=== PATIENT | female | born 1975 | race Caucasian/White ===

== ENCOUNTER 2020-06-25 17:12 | Emergency (ER) | payer OTHER ==
[2020-06-25 17:38] VITALS: TEMP 98.6; BMI 32.9
[2020-06-25] MEDS ORDERED: NAPROXEN 375 MG TABLET PO ONE (20:00)
[2020-06-25] MEDS ORDERED: NAPROXEN 500 MG TABLET PO ONE (20:07)
[2020-06-25] MEDS ORDERED: NAPROXEN 500 MG TABLET ONE (20:07)
[2020-06-25 20:32] VITALS: BP 132/80; PULSE 82
== END 2020-06-25 20:32 | disposition home or self-care (01) ==
LOC: JER 17:12
DX: M79.605 Pain in left leg (principal)
CPT/HCPCS: 93970-TC; 99284-25

== ENCOUNTER 2020-12-06 20:36 | Emergency (ER) | payer OTHER ==
[2020-12-06 21:26] VITALS: TEMP 98.1; BMI 34.0
[2020-12-06] MEDS ORDERED: ACETAMINOPHEN 325 MG TABLET (FP) PO ONE (21:46)
[2020-12-06] MEDS ORDERED: LIDOCAINE 5% TOPICAL PATCH TP ONE (21:47)
[2020-12-06] MEDS ORDERED: LIDOCAINE PATCH REMOVAL MC ONE (22:00)
[2020-12-06] MEDS ORDERED: ACETAMINOPHEN 325 MG TABLET (FP) ONE (22:11)
[2020-12-06] MEDS ORDERED: LIDOCAINE 5% TOPICAL PATCH ONE (22:12)
[2020-12-06] MEDS ORDERED: IBUPROFEN 600 MG TABLET (FP) PO ONE ×2 (22:18→22:41)
[2020-12-06 22:35] LABS: BASO % 0.8 % (0-2.0); EOS % 1.8 % (0-4.5); HEMATOCRIT 40.8 % (32.4-45.2); HEMOGLOBIN 14.2 GM/dL (10.7-15.3); LYMPH % 29.4 % (8-40); MCH 31.5 pg (25.7-33.7); MCHC 34.7 g/dl (32.0-36.0); MEAN CELL VOLUME 90.8 fl (80-96); MEAN PLT VOLUME 6.4 fl (7.5-11.1); MONO % 6.5 % (3.8-10.2); NEUT % 61.5 % (42.8-82.8); PLATELET COUNT 281 10^3/uL (134-434); RDW 13.1 % (11.6-15.6); WHITE BLOOD COUNT 7.7 K/mm3 (4.0-10.0)
[2020-12-06 22:54] LABS: CHLORIDE 109 mmol/L (98-107); SODIUM 140 mmol/L (136-145)
[2020-12-06 22:58] LABS: ALBUMIN 3.6 g/dl (3.4-5.0); ANION GAP 8 MMOL/L (8-16); BLOOD UREA NITROGEN 13.5 mg/dL (7-18); CALCIUM 8.5 mg/dL (8.5-10.1); CO2 24 mmol/L (21-32); GLUCOSE,RANDOM 92 mg/dL (74-106)
[2020-12-06 23:01] LABS: SGOT/AST 10 U/L (15-37); SGPT/ALT 21 U/L (13-61)
[2020-12-06 23:03] LABS: BILIRUBIN,TOTAL 0.4 mg/dL (0.2-1); TOT PROT 7.2 g/dl (6.4-8.2)
[2020-12-06 23:04] LABS: ALK PHOS 46 U/L (45-117)
[2020-12-06 23:56] VITALS: BP 117/81; PULSE 79
== END 2020-12-06 23:57 | disposition home or self-care (01) ==
LOC: JER 20:36
DX: M79.10 Myalgia, unspecified site (principal)
CPT/HCPCS: 36415; 71046-TC-FY; 80053; 82550; 84484; 85025; 93005; 93010; 99285-25

== ENCOUNTER 2021-10-25 00:14 | Emergency (ER) | payer OTHER ==
[2021-10-25 00:36] VITALS: BP 134/85; PULSE 93; RESP 20; TEMP 98.1; BMI 36.0
== END 2021-10-25 01:23 | disposition home or self-care (01) ==
LOC: JER 00:14
DX: H11.32 Conjunctival hemorrhage, left eye (principal)
CPT/HCPCS: 99283-25

== ENCOUNTER 2021-11-25 19:01 | Emergency (ER) | payer OTHER ==
[2021-11-25 19:07] VITALS: BP 130/74; PULSE 86; RESP 18; BMI 36.3
[2021-11-25] MEDS ORDERED: ACETAMINOPHEN 1000 MG/100 ML BAG IVPB ONE (20:09)
[2021-11-25] MEDS ORDERED: MAG HYDROX/AL HYDROX/SIMETH -MYLANTA- ORAL SUSPENSION PO ONE (20:09)
[2021-11-25] MEDS ORDERED: FAMOTIDINE 20 MG/50 ML IVPB 20 MG/50 ML MG IVPB ONE ×2 (20:09→20:54)
[2021-11-25 20:15] VITALS: TEMP 97.8
[2021-11-25 20:52] LABS: BASO % 0.8 % (0-2.0); EOS % 1.3 % (0-4.5); HEMATOCRIT 41.3 % (32.4-45.2); HEMOGLOBIN 14.3 GM/dL (10.7-15.3); LYMPH % 26.3 % (8-40); MCH 31.8 pg (25.7-33.7); MCHC 34.7 g/dl (32.0-36.0); MEAN CELL VOLUME 91.7 fl (80-96); MEAN PLT VOLUME 6.3 fl (7.5-11.1); MONO % 6.6 % (3.8-10.2); PLATELET COUNT 291 10^3/uL (134-434); RBC 4.51 M/mm3 (3.60-5.2); RDW 13.5 % (11.6-15.6); WHITE BLOOD COUNT 7.2 K/mm3 (4.0-10.0)
[2021-11-25] MEDS ORDERED: MAG HYDROX/AL HYDROX/SIMETH 30 ML UNIT-DOSE CUP ONE (20:54)
[2021-11-25] MEDS ORDERED: ACETAMINOPHEN INJECTION 100 ML IVPB ONE (20:54)
[2021-11-25 21:12] LABS: CHLORIDE 110 mmol/L (98-107); SODIUM 140 mmol/L (136-145)
[2021-11-25 21:14] LABS: ALBUMIN 3.6 g/dl (3.4-5.0); ANION GAP 6 MMOL/L (8-16); BLOOD UREA NITROGEN 9.5 mg/dL (7-18); CALCIUM 8.2 mg/dL (8.5-10.1); CO2 24 mmol/L (21-32); GLUCOSE,RANDOM 92 mg/dL (74-106); LIPASE 141 U/L (73-393)
[2021-11-25 21:17] LABS: CREATININE 0.7 mg/dL (0.55-1.3); SGOT/AST 19 U/L (15-37); SGPT/ALT 26 U/L (13-61)
[2021-11-25 21:18] LABS: BILIRUBIN,TOTAL 0.4 mg/dL (0.2-1)
[2021-11-25 21:19] LABS: TOT PROT 7.3 g/dl (6.4-8.2)
[2021-11-25 21:20] LABS: ALK PHOS 53 U/L (45-117)
== END 2021-11-25 22:48 | disposition home or self-care (01) ==
LOC: JER 19:01
PROC: 3E0333Z Introduction of Anti-inflammatory into Peripheral Vein, Percutaneous Approach (ICD-10-PCS; principal; 2021-11-25)
PROC: 3E033GC Introduction of Other Therapeutic Substance into Peripheral Vein, Percutaneous Approach (ICD-10-PCS; 2021-11-25)
DX: M79.605 Pain in left leg (principal); R07.9 Chest pain, unspecified
CPT/HCPCS: 36415; 71045-TC-FY; 80053; 83690; 84484; 85025; 93005; 93010; 99285-25; C9803-CS; U0003; U0005

== ENCOUNTER 2022-03-31 14:36 | Emergency (ER) | payer OTHER ==
[2022-03-31 14:44] VITALS: BP 129/78; PULSE 70; RESP 20; TEMP 98.4; BMI 33.5
[2022-03-31] MEDS ORDERED: IBUPROFEN 400 MG TABLET (FP) PO ONE ×2 (15:20→15:39)
== END 2022-03-31 15:44 | disposition home or self-care (01) ==
LOC: JERFT 14:36
DX: G57.12 Meralgia paresthetica, left lower limb (principal)
CPT/HCPCS: 99283-25

== ENCOUNTER 2022-10-21 18:45 | Emergency (ER) | payer OTHER ==
[2022-10-21 18:54] VITALS: BP 169/92; PULSE 83; RESP 20; TEMP 98.3; BMI 39.0
== END 2022-10-21 20:17 | disposition home or self-care (01) ==
LOC: JERFT 18:45
DX: K13.70 Unspecified lesions of oral mucosa (principal); J35.8 Other chronic diseases of tonsils and adenoids; Z20.822 Contact with and (suspected) exposure to COVID-19
CPT/HCPCS: 87651; 99283-25

== ENCOUNTER 2023-02-04 07:11 | Emergency (ER) | payer OTHER ==
[2023-02-04 07:34] VITALS: RESP 18; BMI 39.8
[2023-02-04] MEDS ORDERED: SODIUM CHLORIDE 1,000 ML IV STA (08:19)
[2023-02-04] MEDS ORDERED: ACETAMINOPHEN 1000 MG/100 ML BAG IVPB ONE (08:19)
[2023-02-04] MEDS ORDERED: ACETAMINOPHEN INJECTION 100 ML IVPB ONE (08:34)
[2023-02-04 09:34] LABS: HEMATOCRIT 43.8 % (32.4-45.2); HEMOGLOBIN 15.2 GM/dL (10.7-15.3); MCH 31.2 pg (25.7-33.7); MCHC 34.8 g/dl (32.0-36.0); MEAN CELL VOLUME 89.8 fl (80-96); RBC 4.88 M/mm3 (3.60-5.2); RDW 13.7 % (11.6-15.6)
[2023-02-04 09:43] LABS: POTASSIUM 4.5 mmol/L (3.5-5.1)
[2023-02-04 09:50] LABS: CREATININE 0.7 mg/dL (0.55-1.3)
[2023-02-04 09:52] LABS: ALBUMIN 3.8 g/dl (3.4-5.0); BILIRUBIN,TOTAL 0.4 mg/dL (0.2-1); BLOOD UREA NITROGEN 10.8 mg/dL (7-18); CALCIUM 8.9 mg/dL (8.5-10.1); TOT PROT 7.6 g/dl (6.4-8.2)
[2023-02-04 10:14] LABS: WHITE BLOOD COUNT 8.3 K/mm3 (4.0-10.0)
[2023-02-04 10:15] LABS: MEAN PLT VOLUME 8.6 fl (7.5-11.1); PLATELET COUNT 181 10^3/uL (134-434)
[2023-02-04 11:30] LABS: ANISOCYTOSIS 1+; MACROCYTOSIS 0
[2023-02-04] MEDS ORDERED: AMOX TR/POT CLAV 875MG/125MG TABLETS (FP) PO ONE (12:17)
[2023-02-04] MEDS ORDERED: AMOX TR/POT CLAV 875MG/125MG TABLETS (FP) ONE (13:09)
[2023-02-04 13:29] VITALS: BP 130/68; PULSE 70; TEMP 97.6
== END 2023-02-04 13:29 | disposition home or self-care (01) ==
LOC: JER 07:11
PROC: 3E033NZ Introduction of Analgesics, Hypnotics, Sedatives into Peripheral Vein, Percutaneous Approach (ICD-10-PCS; principal; 2023-02-04)
PROC: 3E0337Z Introduction of Electrolytic and Water Balance Substance into Peripheral Vein, Percutaneous Approach (ICD-10-PCS; 2023-02-04)
DX: R10.9 Unspecified abdominal pain (principal); R19.7 Diarrhea, unspecified; K57.32 Diverticulitis of large intestine without perforation or abscess without bleeding
CPT/HCPCS: 36415; 74177-TC; 80053; 85025; 99285-25; Q9967

== ENCOUNTER 2023-02-10 06:52 | Emergency (ER) | payer OTHER ==
[2023-02-10 07:06] VITALS: BP 133/85; PULSE 85; RESP 18; TEMP 98.7; BMI 35.0
[2023-02-10] MEDS ORDERED: KETOROLAC TROMETHAMINE 30 MG/1 ML VIAL IM ONE (07:42)
[2023-02-10] MEDS ORDERED: LIDOCAINE 4% PATCH TP ONE ×2 (07:42→07:46)
[2023-02-10] MEDS ORDERED: ACETAMINOPHEN 325 MG TABLET (FP) PO ONE (07:42)
[2023-02-10] MEDS ORDERED: ACETAMINOPHEN 325 MG TABLET (FP) ONE (07:46)
[2023-02-10] MEDS ORDERED: KETOROLAC TROMETHAMINE 30 MG/1 ML VIAL ONE (07:46)
[2023-02-10] MEDS ORDERED: LIDOCAINE PATCH REMOVAL MC SCH (22:00)
== END 2023-02-10 09:15 | disposition home or self-care (01) ==
LOC: JER 06:52
PROC: 3E0233Z Introduction of Anti-inflammatory into Muscle, Percutaneous Approach (ICD-10-PCS; principal; 2023-02-10)
DX: S33.5XXA Sprain of ligaments of lumbar spine, initial encounter (principal); X50.9XXA Other and unspecified overexertion or strenuous movements or postures, initial encounter; Y99.0 Civilian activity done for income or pay
CPT/HCPCS: 99284-25

== ENCOUNTER 2023-02-15 03:54 | Emergency (ER) | payer OTHER ==
[2023-02-15 04:13] VITALS: BMI 34.7
[2023-02-15] MEDS ORDERED: MAG HYDROX/AL HYDROX/SIMETH -MYLANTA- ORAL SUSPENSION PO ONE (05:06)
[2023-02-15] MEDS ORDERED: FAMOTIDINE 20 MG/50 ML IVPB 20 MG/50 ML MG IVPB ONE ×2 (05:06→05:13)
[2023-02-15] MEDS ORDERED: MAG HYDROX/AL HYDROX/SIMETH 30 ML UNIT-DOSE CUP ONE (05:13)
[2023-02-15 05:23] VITALS: BP 125/77; PULSE 77; RESP 18; TEMP 98.4
[2023-02-15] MEDS ORDERED: ACETAMINOPHEN 1000 MG/100 ML BAG IVPB ONE (05:25)
[2023-02-15] MEDS ORDERED: ACETAMINOPHEN INJECTION 100 ML IVPB ONE (05:27)
[2023-02-15 05:30] LABS: BASO % 0.5 % (0-2.0); EOS % 2.1 % (0-4.5); HEMATOCRIT 44.8 % (32.4-45.2); HEMOGLOBIN 15.4 GM/dL (10.7-15.3); LYMPH % 11.8 % (8-40); MCH 31.4 pg (25.7-33.7); MCHC 34.3 g/dl (32.0-36.0); MEAN CELL VOLUME 91.4 fl (80-96); MEAN PLT VOLUME 6.8 fl (7.5-11.1); MONO % 6.8 % (3.8-10.2); NEUT % 78.8 % (42.8-82.8); PLATELET COUNT 237 10^3/uL (134-434); RDW 13.8 % (11.6-15.6); WHITE BLOOD COUNT 10.2 K/mm3 (4.0-10.0)
[2023-02-15 06:06] LABS: POTASSIUM 3.8 mmol/L (3.5-5.1)
[2023-02-15 06:07] LABS: CALCIUM 9.3 mg/dL (8.5-10.1)
[2023-02-15 06:08] LABS: BLOOD UREA NITROGEN 7.2 mg/dL (7-18); MAGNESIUM 2.1 mg/dL (1.8-2.4)
[2023-02-15 06:10] LABS: CREATININE 0.8 mg/dL (0.55-1.3)
[2023-02-15 06:12] LABS: BILIRUBIN,TOTAL 0.7 mg/dL (0.2-1); TOT PROT 7.6 g/dl (6.4-8.2)
== END 2023-02-15 06:44 | disposition home or self-care (01) ==
LOC: JER 03:54
PROC: 3E033GC Introduction of Other Therapeutic Substance into Peripheral Vein, Percutaneous Approach (ICD-10-PCS; principal; 2023-02-15)
PROC: 3E033NZ Introduction of Analgesics, Hypnotics, Sedatives into Peripheral Vein, Percutaneous Approach (ICD-10-PCS; 2023-02-15)
DX: R10.13 Epigastric pain (principal); K29.00 Acute gastritis without bleeding; R19.7 Diarrhea, unspecified
CPT/HCPCS: 36415; 80053; 83690; 83735; 85025; 93005; 93010; 99284-25

== ENCOUNTER 2023-02-26 02:34 | Emergency (ER) | payer OTHER ==
[2023-02-26 02:52] VITALS: BMI 33.6
[2023-02-26] MEDS ORDERED: ACETAMINOPHEN 1000 MG/100 ML BAG IVPB ONE (03:03)
[2023-02-26] MEDS ORDERED: FAMOTIDINE 20 MG/50 ML IVPB 20 MG/50 ML MG IVPB ONE (03:14)
[2023-02-26] MEDS ORDERED: MAG HYDROX/AL HYDROX/SIMETH 30 ML UNIT-DOSE CUP PO ONE (03:14)
[2023-02-26] MEDS ORDERED: ACETAMINOPHEN INJECTION 100 ML IVPB ONE (03:18)
[2023-02-26] MEDS ORDERED: MAG HYDROX/AL HYDROX/SIMETH 30 ML UNIT-DOSE CUP ONE (03:18)
[2023-02-26] MEDS ORDERED: FAMOTIDINE 10 MG/ML VIAL IVPB ONE (03:28)
[2023-02-26 04:04] LABS: BASO % 0.8 % (0-2.0); EOS % 1.9 % (0-4.5); HEMATOCRIT 41.7 % (32.4-45.2); HEMOGLOBIN 14.6 GM/dL (10.7-15.3); LYMPH % 33.7 % (8-40); MCH 31.3 pg (25.7-33.7); MCHC 34.9 g/dl (32.0-36.0); MEAN CELL VOLUME 89.6 fl (80-96); MEAN PLT VOLUME 6.4 fl (7.5-11.1); MONO % 10.9 % (3.8-10.2); NEUT % 52.7 % (42.8-82.8); PLATELET COUNT 243 10^3/uL (134-434); RBC 4.65 M/mm3 (3.60-5.2); RDW 13.7 % (11.6-15.6); WHITE BLOOD COUNT 3.7 K/mm3 (4.0-10.0)
[2023-02-26 04:24] LABS: POTASSIUM 3.8 mmol/L (3.5-5.1)
[2023-02-26 04:27] LABS: CALCIUM 9.3 mg/dL (8.5-10.1)
[2023-02-26 04:28] LABS: ALBUMIN 3.4 g/dl (3.4-5.0); BLOOD UREA NITROGEN 12.3 mg/dL (7-18)
[2023-02-26 04:31] LABS: CREATININE 0.8 mg/dL (0.55-1.3)
[2023-02-26 04:32] LABS: BILIRUBIN,TOTAL 0.6 mg/dL (0.2-1)
[2023-02-26 07:01] VITALS: BP 135/95; PULSE 82; RESP 18; TEMP 97.2
== END 2023-02-26 07:05 | disposition home or self-care (01) ==
LOC: JER 02:34
PROC: 3E033GC Introduction of Other Therapeutic Substance into Peripheral Vein, Percutaneous Approach (ICD-10-PCS; principal; 2023-02-26)
PROC: 3E033GC Introduction of Other Therapeutic Substance into Peripheral Vein, Percutaneous Approach (ICD-10-PCS; 2023-02-26)
DX: R07.89 Other chest pain (principal); R11.10 Vomiting, unspecified; U07.1 COVID-19
CPT/HCPCS: 0241U-QW; 36415; 71046-TC-FY; 80053; 84484; 85025; 93005; 93010; 99285-25

== ENCOUNTER 2023-03-18 23:08 | Emergency (ER) | payer OTHER ==
[2023-03-18 23:16] VITALS: BP 125/77; PULSE 70; RESP 20; TEMP 98.9; BMI 33.4
[2023-03-18] MEDS ORDERED: KETOROLAC TROMETHAMINE 30 MG/1 ML VIAL IM STA (23:36)
[2023-03-18] MEDS ORDERED: KETOROLAC TROMETHAMINE 30 MG/1 ML VIAL ONE (23:48)
== END 2023-03-19 01:56 | disposition home or self-care (01) ==
LOC: JER 23:08
PROC: 3E0233Z Introduction of Anti-inflammatory into Muscle, Percutaneous Approach (ICD-10-PCS; principal; 2023-03-18)
DX: M79.652 Pain in left thigh (principal); R20.2 Paresthesia of skin; S76.912A Strain of unspecified muscles, fascia and tendons at thigh level, left thigh, initial encounter; X50.9XXA Other and unspecified overexertion or strenuous movements or postures, initial encounter
CPT/HCPCS: 93971-TC; 99284-25

== ENCOUNTER 2023-04-30 19:44 | Emergency (ER) | payer OTHER ==
[2023-04-30 19:55] VITALS: TEMP 98.5; BMI 34.9
[2023-04-30] MEDS: ACETAMINOPHEN 325 MG TABLET (FP) PO ONE (21:16)
[2023-04-30] MEDS ORDERED: ACETAMINOPHEN 500 MG TABLET (FP) ONE (21:16)
[2023-04-30 21:43] LABS: BASO % 1.2 % (0-2.0); EOS % 2.5 % (0-4.5); HEMOGLOBIN 14.1 GM/dL (10.7-15.3); LYMPH % 34.3 % (8-40); MCH 31.1 pg (25.7-33.7); MCHC 33.6 g/dl (32.0-36.0); MEAN CELL VOLUME 92.6 fl (80-96); MEAN PLT VOLUME 6.1 fl (7.5-11.1); MONO % 8.2 % (3.8-10.2); NEUT % 53.8 % (42.8-82.8); PLATELET COUNT 344 10^3/uL (134-434); RBC 4.54 M/mm3 (3.60-5.2); RDW 13.2 % (11.6-15.6)
[2023-04-30 21:49] LABS: INR 0.92 (0.83-1.09); PROTHROMBIN TIME (PATIENT) 10.7 SEC (9.7-13.0)
[2023-04-30 21:52] LABS: ACTIVATED PTT 28.1 SECONDS (25.2-36.5)
[2023-04-30 21:59] LABS: ALBUMIN 3.6 g/dl (3.4-5.0); BLOOD UREA NITROGEN 12.5 mg/dL (7-18); MAGNESIUM 1.9 mg/dL (1.8-2.4)
[2023-04-30 22:02] LABS: CREATININE 0.9 mg/dL (0.55-1.3)
[2023-04-30 22:03] LABS: BILIRUBIN,TOTAL 0.4 mg/dL (0.2-1); TOT PROT 7.7 g/dl (6.4-8.2)
[2023-04-30 23:52] VITALS: BP 152/85; PULSE 80; RESP 16
== END 2023-05-01 00:06 | disposition home or self-care (01) ==
LOC: JERFT 19:44 → JER 19:44
DX: R07.89 Other chest pain (principal); M79.604 Pain in right leg
CPT/HCPCS: 36415; 71275-TC; 80053; 83735; 85025; 85610; 85730; 86850; 86900; 86901; 93005; 93010; 93971-TC; 99285-25; Q9967

== ENCOUNTER 2023-05-27 23:38 | Emergency (ER) | payer OTHER ==
[2023-05-27 23:54] VITALS: BP 138/88; PULSE 94; RESP 18; TEMP 98.5; BMI 35.7
[2023-05-28] MEDS ORDERED: LIDOCAINE 4% PATCH TP ONE (01:15)
[2023-05-28] MEDS ORDERED: ACETAMINOPHEN INJECTION 100 ML IVPB ONE (01:15)
[2023-05-28] MEDS: LIDOCAINE 4% PATCH TP ONE (01:19)
[2023-05-28] MEDS: ACETAMINOPHEN 1000 MG/100 ML BAG IVPB ONE (01:19)
[2023-05-28 01:21] LABS: BASO % 0.9 % (0-2.0); EOS % 3.2 % (0-4.5); HEMATOCRIT 42.3 % (32.4-45.2); HEMOGLOBIN 14.8 GM/dL (10.7-15.3); LYMPH % 27.5 % (8-40); MCH 31.7 pg (25.7-33.7); MEAN CELL VOLUME 90.4 fl (80-96); MEAN PLT VOLUME 6.4 fl (7.5-11.1); MONO % 8.9 % (3.8-10.2); NEUT % 59.5 % (42.8-82.8); PLATELET COUNT 261 10^3/uL (134-434); RBC 4.68 M/mm3 (3.60-5.2); RDW 13.1 % (11.6-15.6); WHITE BLOOD COUNT 7.5 K/mm3 (4.0-10.0)
[2023-05-28 01:29] LABS: INR 0.98 (0.83-1.09); PROTHROMBIN TIME (PATIENT) 11.4 SEC (9.7-13.0)
[2023-05-28 01:31] LABS: ACTIVATED PTT 31.6 SECONDS (25.2-36.5)
[2023-05-28 01:55] LABS: POTASSIUM 3.8 mmol/L (3.5-5.1)
[2023-05-28 01:58] LABS: CALCIUM 9.5 mg/dL (8.5-10.1)
[2023-05-28 01:59] LABS: BLOOD UREA NITROGEN 15.8 mg/dL (7-18); MAGNESIUM 2.2 mg/dL (1.8-2.4)
[2023-05-28 02:03] LABS: BILIRUBIN,TOTAL 0.6 mg/dL (0.2-1); CREATININE 0.8 mg/dL (0.55-1.3); TOT PROT 7.6 g/dl (6.4-8.2)
[2023-05-28] MEDS ORDERED: LIDOCAINE PATCH REMOVAL MC ONE (13:00)
== END 2023-05-28 03:20 | disposition home or self-care (01) ==
LOC: JER 23:38
PROC: 3E033NZ Introduction of Analgesics, Hypnotics, Sedatives into Peripheral Vein, Percutaneous Approach (ICD-10-PCS; principal; 2023-05-28)
DX: M79.602 Pain in left arm (principal); R68.84 Jaw pain
CPT/HCPCS: 36415; 71046-TC-FY; 73060-TC-LT-FY; 73070-TC-LT-FY; 80053; 83735; 84484; 85025; 85610; 85730; 93005; 93010; 99285-25; J0131

== ENCOUNTER 2023-12-07 02:08 | Emergency (ER) | payer OTHER ==
[2023-12-07 02:14] VITALS: BP 147/87; PULSE 93; RESP 18; TEMP 98.8; BMI 36.3
[2023-12-07] MEDS ORDERED: morphine SULFATE 4 MG/ML VIAL ONE (03:02)
[2023-12-07] MEDS ORDERED: ONDANSETRON 4 MG/2 ML VIAL ONE (03:03)
[2023-12-07] MEDS: ONDANSETRON 4 MG/2 ML VIAL IVPUSH ONE (03:26)
[2023-12-07] MEDS: morphine CARPU-JECT 4 MG/1 ML DISP.SYRIN IVPUSH ONE (03:26)
[2023-12-07] MEDS: SODIUM CHLORIDE 1,000 ML IV STA (03:26)
[2023-12-07 03:36] LABS: BASO % 0.4 % (0-2.0); EOS % 2.2 % (0-4.5); HEMATOCRIT 43.1 % (32.4-45.2); HEMOGLOBIN 14.7 GM/dL (10.7-15.3); LYMPH % 10.4 % (8-40); MCH 30.6 pg (25.7-33.7); MCHC 34.1 g/dl (32.0-36.0); MEAN CELL VOLUME 89.7 fl (80-96); MEAN PLT VOLUME 6.7 fl (7.5-11.1); MONO % 7.2 % (3.8-10.2); NEUT % 79.8 % (42.8-82.8); PLATELET COUNT 253 10^3/uL (134-434); RDW 13.9 % (11.6-15.6); WHITE BLOOD COUNT 6.6 K/mm3 (4.0-10.0)
[2023-12-07 03:37] LABS: EPI CELLS 12 /uL (0-25.1); HYALINE CASTS 0 /uL (0-3.1); URINE APPEARANCE CLEAR; URINE BACTERIA 1478 /uL (0-1359); URINE BILIRUBIN NEGATIVE (NEGATIVE); URINE COLOR YELLOW; URINE GLUCOSE (UA) NEGATIVE (NEGATIVE); URINE KETONE NEGATIVE (NEGATIVE); URINE LEUK ESTERASE NEGATIVE (NEGATIVE); URINE NITRITE NEGATIVE (NEGATIVE); URINE PROTEIN NEGATIVE (NEGATIVE); URINE RBC 86 /uL (0-23.9); URINE WBC 7 /uL (0-25.8)
[2023-12-07 03:51] LABS: INR 0.95 (0.83-1.09); PROTHROMBIN TIME (PATIENT) 10.7 SEC (9.7-13.0)
[2023-12-07 03:56] LABS: POTASSIUM 3.8 mmol/L (3.5-5.1)
[2023-12-07 03:58] LABS: CALCIUM 8.8 mg/dL (8.5-10.1)
[2023-12-07 03:59] LABS: ALBUMIN 3.5 g/dl (3.4-5.0)
[2023-12-07 04:02] LABS: CREATININE 0.8 mg/dL (0.55-1.3)
[2023-12-07 04:03] LABS: BILIRUBIN,TOTAL 0.5 mg/dL (0.2-1)
[2023-12-07 04:50] LABS: HIV INTERPRETATION NEGATIVE (NEGATIVE)
== END 2023-12-07 05:58 | disposition home or self-care (01) ==
LOC: JER 02:08
PROC: 3E033NZ Introduction of Analgesics, Hypnotics, Sedatives into Peripheral Vein, Percutaneous Approach (ICD-10-PCS; principal; 2023-12-07)
PROC: 3E033GC Introduction of Other Therapeutic Substance into Peripheral Vein, Percutaneous Approach (ICD-10-PCS; 2023-12-07)
PROC: 3E0337Z Introduction of Electrolytic and Water Balance Substance into Peripheral Vein, Percutaneous Approach (ICD-10-PCS; 2023-12-07)
DX: R10.12 Left upper quadrant pain (principal); R11.2 Nausea with vomiting, unspecified
CPT/HCPCS: 36415; 74177-TC; 80053; 81003; 83690; 84703; 85025; 85610; 85730; 86803; 86850; 86900; 86901; 87389; 99285-25; Q9967

== ENCOUNTER 2023-12-18 06:42 | Emergency (ER) | payer OTHER ==
[2023-12-18 06:48] VITALS: BP 134/83; PULSE 66; RESP 20; TEMP 98.1; BMI 37.8
[2023-12-18 08:26] LABS: BASO % 0.7 % (0-2.0); EOS % 2.9 % (0-4.5); HEMATOCRIT 42.2 % (32.4-45.2); HEMOGLOBIN 14.4 GM/dL (10.7-15.3); LYMPH % 20.3 % (8-40); MCH 30.5 pg (25.7-33.7); MCHC 34.1 g/dl (32.0-36.0); MEAN CELL VOLUME 89.5 fl (80-96); MEAN PLT VOLUME 6.5 fl (7.5-11.1); MONO % 8.1 % (3.8-10.2); PLATELET COUNT 249 10^3/uL (134-434); RBC 4.71 M/mm3 (3.60-5.2); RDW 13.9 % (11.6-15.6); WHITE BLOOD COUNT 7.1 K/mm3 (4.0-10.0)
[2023-12-18 08:57] LABS: POTASSIUM 3.9 mmol/L (3.5-5.1)
[2023-12-18 08:59] LABS: ALBUMIN 3.5 g/dl (3.4-5.0); CALCIUM 8.5 mg/dL (8.5-10.1)
[2023-12-18 09:00] LABS: BLOOD UREA NITROGEN 13.5 mg/dL (7-18)
[2023-12-18 09:02] LABS: CREATININE 0.7 mg/dL (0.55-1.3)
[2023-12-18 09:04] LABS: BILIRUBIN,TOTAL 0.5 mg/dL (0.2-1); TOT PROT 7.1 g/dl (6.4-8.2)
[2023-12-18 12:13] LABS: HIV INTERPRETATION NEGATIVE (NEGATIVE)
== END 2023-12-18 10:30 | disposition home or self-care (01) ==
LOC: JER 06:42
DX: R07.2 Precordial pain (principal); Z20.822 Contact with and (suspected) exposure to COVID-19
CPT/HCPCS: 0241U-QW; 36415; 71046-TC-FY; 80053; 84484; 85025; 86803; 87389; 93005; 93010; 99285-25

== ENCOUNTER 2024-01-21 03:36 | Emergency (ER) | payer OTHER ==
[2024-01-21 03:39] VITALS: TEMP 98.1; BMI 35.2
[2024-01-21] MEDS ORDERED: IBUPROFEN 400 MG TABLET (FP) PO ONE (04:20)
[2024-01-21] MEDS ORDERED: LIDOCAINE 4% PATCH TP ONE (04:20)
[2024-01-21] MEDS: IBUPROFEN 400 MG TABLET (FP) PO ONE (04:36)
[2024-01-21] MEDS: LIDOCAINE 4% PATCH TP ONE (04:37)
[2024-01-21] MEDS: IBUPROFEN 800 MG/8 ML IJ IVPB ONE (04:49)
[2024-01-21 04:58] LABS: BASO % 0.9 % (0-2.0); EOS % 2.6 % (0-4.5); HEMATOCRIT 39.4 % (32.4-45.2); HEMOGLOBIN 13.7 GM/dL (10.7-15.3); LYMPH % 25.3 % (8-40); MCH 30.8 pg (25.7-33.7); MCHC 34.7 g/dl (32.0-36.0); MEAN CELL VOLUME 88.9 fl (80-96); MEAN PLT VOLUME 6.4 fl (7.5-11.1); MONO % 7.8 % (3.8-10.2); NEUT % 63.4 % (42.8-82.8); PLATELET COUNT 267 10^3/uL (134-434); RBC 4.43 M/mm3 (3.60-5.2); WHITE BLOOD COUNT 5.1 K/mm3 (4.0-10.0)
[2024-01-21 05:04] LABS: POTASSIUM 3.3 mmol/L (3.5-5.1)
[2024-01-21 05:06] LABS: ALBUMIN 3.6 g/dl (3.4-5.0); CALCIUM 8.5 mg/dL (8.5-10.1)
[2024-01-21 05:09] LABS: CREATININE 0.7 mg/dL (0.55-1.3)
[2024-01-21 05:11] LABS: BILIRUBIN,TOTAL 0.4 mg/dL (0.2-1)
[2024-01-21] MEDS ORDERED: METHOCARBAMOL 500 MG TABLET ONE (05:53)
[2024-01-21 06:04] VITALS: BP 146/86; PULSE 90; RESP 16
[2024-01-21] MEDS: METHOCARBAMOL 500 MG TABLET PO ONE (06:04)
[2024-01-21] MEDS ORDERED: LIDOCAINE PATCH REMOVAL MC SCH (22:00)
== END 2024-01-21 06:05 | disposition home or self-care (01) ==
LOC: JER 03:36
DX: M62.838 Other muscle spasm (principal); M25.512 Pain in left shoulder; R07.89 Other chest pain
CPT/HCPCS: 36415; 71046-TC-FY; 80053; 84484; 85025; 93005; 93010; 99285-25

== ENCOUNTER 2024-02-12 18:28 | Emergency (ER) | payer OTHER ==
[2024-02-12 18:36] VITALS: BP 107/70; PULSE 75; RESP 18; TEMP 97.9; BMI 35.2
[2024-02-12] MEDS ORDERED: ACETAMINOPHEN 500 MG TABLET (FP) ONE (20:34)
[2024-02-12 20:41] LABS: BASO % 0.8 % (0-2.0); EOS % 2.3 % (0-4.5); HEMATOCRIT 40.9 % (32.4-45.2); HEMOGLOBIN 13.9 GM/dL (10.7-15.3); LYMPH % 39.2 % (8-40); MCH 30.6 pg (25.7-33.7); MCHC 34.1 g/dl (32.0-36.0); MEAN CELL VOLUME 89.6 fl (80-96); MEAN PLT VOLUME 6.2 fl (7.5-11.1); MONO % 8.2 % (3.8-10.2); NEUT % 49.5 % (42.8-82.8); PLATELET COUNT 292 10^3/uL (134-434); RBC 4.56 M/mm3 (3.60-5.2); RDW 14.1 % (11.6-15.6); WHITE BLOOD COUNT 8.1 K/mm3 (4.0-10.0)
[2024-02-12 20:59] LABS: POTASSIUM 3.5 mmol/L (3.5-5.1)
[2024-02-12 21:03] LABS: ALBUMIN 3.7 g/dl (3.4-5.0); BLOOD UREA NITROGEN 15.9 mg/dL (7-18); CALCIUM 8.7 mg/dL (8.5-10.1)
[2024-02-12 21:06] LABS: CREATININE 0.8 mg/dL (0.55-1.3)
[2024-02-12 21:07] LABS: BILIRUBIN,TOTAL 0.7 mg/dL (0.2-1)
[2024-02-12 21:08] LABS: TOT PROT 7.4 g/dl (6.4-8.2)
[2024-02-12] MEDS: ACETAMINOPHEN 500 MG TABLET (FP) PO ONE (21:23)
[2024-02-12] MEDS: AMOX TR/POT CLAV 875MG/125MG TABLETS (FP) PO ONE (21:39)
[2024-02-12] MEDS ORDERED: AMOX TR/POT CLAV 875MG/125MG TABLETS (FP) ONE (21:40)
== END 2024-02-12 21:44 | disposition home or self-care (01) ==
LOC: JER 18:28
DX: K57.32 Diverticulitis of large intestine without perforation or abscess without bleeding (principal); R10.32 Left lower quadrant pain; R19.7 Diarrhea, unspecified
CPT/HCPCS: 36415; 80053; 83690; 85025; 99283-25

== ENCOUNTER 2025-01-03 02:05 | Emergency (ER) | payer OTHER ==
[2025-01-03 02:15] VITALS: BP 110/72; PULSE 78; RESP 18; TEMP 97.7; BMI 34.4
[2025-01-03] MEDS ORDERED: METOCLOPRAMIDE HCL INJECTION 10 MG/2 ML VIAL ONE (03:19)
[2025-01-03] MEDS: METOCLOPRAMIDE HCL INJECTION 10 MG/2 ML VIAL IVPUSH ONE (03:39)
[2025-01-03] MEDS: SODIUM CHLORIDE 0.9% 500 ML INFUS.BAG IV ONE (03:39)
== END 2025-01-03 04:38 | disposition home or self-care (01) ==
LOC: JER 02:05
PROC: 3E033GC Introduction of Other Therapeutic Substance into Peripheral Vein, Percutaneous Approach (ICD-10-PCS; principal; 2025-01-03)
DX: R51.9 Headache, unspecified (principal)
CPT/HCPCS: 70450-TC; 99285-25